=== PATIENT | male | born 1975 | race Caucasian/White ===

== ENCOUNTER 2024-06-24 18:22 | Emergency (ER) | payer SELFPAY ==
[~2024-06-24] VITALS: Ht 172.7 cm; Wt 70.0 kg
[2024-06-24 18:28] VITALS: O2SAT 99
[2024-06-24 21:13] VITALS: BP 140/90; PULSE 91; RESP 18; TEMP 37.11408; O2SAT 99
== END 2024-06-24 21:20 | disposition home or self-care (01) ==
LOC: ER 18:22
DX: T40.1X1A Poisoning by heroin, accidental (unintentional), initial encounter (principal); F11.90 Opioid use, unspecified, uncomplicated; Y92.89 Other specified places as the place of occurrence of the external cause
CPT/HCPCS: 99283